=== PATIENT | male | born 1995 | race Caucasian/White ===

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

== ENCOUNTER → 2017-01-06 | Outpatient (CLI) | payer OTHER ==
--- NOTE | 2017-01-06 16:00 | MR ---
EXAMINATION TYPE: MR lumbar spine wo con DATE OF EXAM: 01/06/2017 3:52 PM COMPARISON: NONE HISTORY: Constant back pain 6-8 months TECHNIQUE: T1 and T2 axial and sagittal images of the lumbar spine are submitted. FINDINGS: There is no abnormal signal seen within the visualized spinal cord or paraspinal soft tissu es. Slight curvature of the spine. At L1-2 there is no disc herniation or degenerative disc disease. No foraminal encroachment. No Canal stenosis. At L2-3 there is no degenerative disc disease, canal stenosis, or focal herniation. No neural foramin al encroachment. At L3-4 there is no degenerative disc disease, canal stenosis, or focal herniation. No neural foramin al encroachment. At L4-5 there is mild disc desiccation and broad-based central disc bulging with mild effacement of t hecal sac. No Canal stenosis. No nerve root contact. Neural foramina remain patent. At L5-S1 there is no degenerative disc disease, canal stenosis, or focal herniation. No neural forami nal encroachment. IMPRESSION: 1. At L4-5 there is mild disc desiccation and broad-based central disc bulging with mild effacement o f thecal sac. No Canal stenosis. No nerve root contact. Neural foramina remain patent
== END | disposition home or self-care (01) ==
LOC: RADMRIMAIN 14:48
PROVIDERS: ATTEND Internal Medicine
DX: M51.26 Other intervertebral disc displacement, lumbar region (principal)
CPT/HCPCS: 72148

== ENCOUNTER 2017-12-05 23:05 | Emergency (ER) | payer OTHER ==
--- NOTE | 2017-12-06 00:08 | ED ---
General Adult HPI - General Chief complaint: Extremity Injury, Upper Stated complaint: HAND INJURY Time Seen by Provider: 12/05/17 23:52 Source: patient, family, RN notes reviewed Mode of arrival: ambulatory Limitations: no limitations - History of Present Illness Initial comments: Chief complaint history of present illness a 22-year-old male here with a complaint of right hand pain and swelling. The patient reports that he punched a refrigerator yesterday. Today he also went to a farm contractor buyer and had a large wart on the PIP joint of his middle finger frozen. Patient states that he was at [facility] yesterday had an x-ray. He was told was a contusion, not broken. The patient states she doesn't believe that it is not broken. Has taken ibuprofen for pain. Patient denies breaking the hand previously though he does have a deformed right middle finger. The patient is right-hand dominant. - Related Data Previous Rx's Medication Instructions Recorded Naproxen 500 mg PO BID PRN #8 tablet 12/06/17 Allergies Allergy/AdvReac Type Severity Reaction Status Date / Time amoxicillin Allergy Rash/Hives Verified 12/05/17 23:24 Review of Systems ROS Statement: Those systems with pertinent positive or pertinent negative responses have been documented in the HPI. Review of systems no other complaint other than right hand pain. Past medical problems none. Surgeries and reconstruction. Family history no cancers. The patient has ALLERGIES to amoxicillin. He does have asthma he does smoke strongly encouraged to stop. Denies alcohol use except for special occasions. ROS Other: All systems not noted in ROS Statement are negative. Past Medical History Past Medical History: No Reported History History of Any Multi-Drug Resistant Organisms: None Reported Additional Past Surgical History / Comment(s): anal reconstruction. Past Psychological History: No Psychological Hx Reported Smoking Status: Current every day smoker Past Alcohol Use History: Occasional Past Drug Use History: Marijuana General Exam - General Exam Comments Initial Comments: Physical exam; pertinent to the patient's visit. Patient's vital signs are stable temperature 98.0 pulse 88 respiratory rate 16 pulse ox 90% room air blood pressure 144/81. No other complaints other than pain to his right hand which is his dominant hand. He presents with swelling over the third fourth and fifth dorsal surfaces of the right hand. No pain to the wrist. The patient will have a re-x-ray. He is able to flex and extend but with discomfort. No evidence of any neurovascular deficits. As noted above he also recently had a large wart frozen on his PIP joint of his middle finger. Limitations: no limitations Course Vital Signs 12/05/17 23:21 Temperature 98 F Pulse Rate 88 Respiratory 16 Rate Blood Pressure 144/81 O2 Sat by Pulse 98 Oximetry Medical Decision Making - Medical Decision Making Medical decision making; is a 22-year-old male here with a complaint of right hand pain after punching a refrigerator yesterday. Mild swelling is noted on the dorsal surface. Range of motion is decreased secondary to discomfort. The patient has a chronically flexed right little finger at the PIP joint due to previous injury. The patient is right-hand dominant. X-ray of the right hand was done multiple views. I reviewed the x- rays. I don't see any acute bony irregularity. There is evidence of a chronic deformity to the PIP joint of the right fifth digit as noted above. Awaiting radiologist's final impression. Radiologist reviewed the x-rays and his impression is I see no fracture nor dislocation. There is some soft tissue swelling on dorsum of the hand. Metacarpals are intact. Impression soft tissue swelling. No fracture. As read by Dr. Rascon Patient was placed on Anaprox one tablet twice a day. Patient had an Lamont wrap applied to the hand told to keep it elevated. Advised to follow-up with his family physician. Disposition Clinical Impression: Contusion of right hand, initial encounter Disposition: HOME SELF-CARE Condition: Fair Instructions: Contusion in Adults (ED) Additional Instructions: Lamont to the hand, elevate. Use Anaprox for pain. Follow-up with family physician. If pain continues re-x-ray in 7-10 days to be advised. Prescriptions: Naproxen 500 mg PO BID PRN #8 tablet PRN Reason: Pain Referrals: Zaki Rico MD [Primary Care Provider] - 1-2 days Time of Disposition: 00:48
[2017-12-06] MEDS ORDERED: NAPROXEN 250 MG TAB PO STA (00:34)
--- NOTE | 2017-12-06 00:46 | XR ---
EXAMINATION TYPE: XR hand complete RT DATE OF EXAM: 12/06/2017 COMPARISON: NONE HISTORY: Metacarpal pain TECHNIQUE: 3 views FINDINGS: I see no fracture nor dislocation. There is some soft tissue swelling on the dorsum of the hand. Metacarpals are intact. IMPRESSION: Soft tissue swelling. No fracture.
[2017-12-06 00:57] VITALS: BP 126/56; PULSE 73; RESP 18; TEMP 98.4
== END 2017-12-06 00:57 | disposition home or self-care (01) ==
LOC: SUPCPDRO 23:05 → EC 23:05
DX: S60.221A Contusion of right hand, initial encounter (principal); F17.200 Nicotine dependence, unspecified, uncomplicated; Z88.0 Allergy status to penicillin; W22.8XXA Striking against or struck by other objects, initial encounter
CPT/HCPCS: 99283

== ENCOUNTER 2018-05-11 22:23 | Emergency (ER) | payer OTHER ==
[2018-05-11 22:28] VITALS: BP 156/96; PULSE 80; RESP 20; TEMP 98.2
[2018-05-11] MEDS ORDERED: DIPH,PERTUS(ACELL)TETVAC-LF 0.5 ML VIAL IM ONE (22:36)
[2018-05-11] MEDS ORDERED: LIDOCAINE/EPINEPHR/TETRACAINE 5 ML BOTTLE TOPICAL ONE (22:36)
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
[2018-05-11] MEDS ORDERED: TOPICAL SKIN ADHESIVE 1 EACH AMP TOPICAL ONE (22:49)
[2018-05-11] MEDS ORDERED: IBUPROFEN 600 MG TAB PO STA (22:52)
== END 2018-05-11 23:13 | disposition home or self-care (01) ==
LOC: EC 22:23
DX: S01.111A Laceration without foreign body of right eyelid and periocular area, initial encounter (principal); F17.200 Nicotine dependence, unspecified, uncomplicated; Z23 Encounter for immunization; Z79.899 Other long term (current) drug therapy; Z88.0 Allergy status to penicillin; Y04.0XXA Assault by unarmed brawl or fight, initial encounter; Y92.009 Unspecified place in unspecified non-institutional (private) residence as the place of occurrence of the external cause
CPT/HCPCS: 12011; 90471; 90715; 99283

== ENCOUNTER 2023-03-10 21:49 | Emergency (ER) | payer OTHER ==
--- NOTE | 2023-03-10 23:35 | XR ---
EXAM: XR Chest, 2 Views CLINICAL HISTORY: ITS.REASON XR Reason: injury TECHNIQUE: Frontal and lateral views of the chest. COMPARISON: No relevant prior studies available. FINDINGS: Lungs: Unremarkable. No consolidation. Pleural space: Unremarkable. No pneumothorax. Heart: Unremarkable. No cardiomegaly. Mediastinum: Unremarkable. Bones/joints: Unremarkable. IMPRESSION: Normal chest x-rays.
--- NOTE | 2023-03-10 23:35 | XR ---
EXAM: XR Left Clavicle Complete, 2 or More Views CLINICAL HISTORY: ITS.REASON XR Reason: injury TECHNIQUE: Frontal and lordotic views of the left clavicle. COMPARISON: No relevant prior studies available. FINDINGS: Bones/joints: Unremarkable. No acute fracture. No dislocation. Soft tissues: Unremarkable. IMPRESSION: Normal left clavicle x-rays.
--- NOTE | 2023-03-10 23:36 | XR ---
EXAM: XR Left Shoulder Complete, 2 or More Views CLINICAL HISTORY: ITS.REASON XR Reason: injury TECHNIQUE: Two or more views of the left shoulder. COMPARISON: No relevant prior studies available. FINDINGS: Bones/joints: Unremarkable. No acute fracture. No dislocation. Soft tissues: Unremarkable. IMPRESSION: Normal left shoulder x-rays.
--- NOTE | 2023-03-11 | ED ---
General Adult HPI - General Chief complaint: Extremity Injury, Upper Stated complaint: Left collarbone pain Time Seen by Provider: 03/10/23 22:54 Source: patient, RN notes reviewed Mode of arrival: ambulatory Limitations: no limitations - History of Present Illness Initial comments: 27-year-old male presents emergency department chief complaint of left-sided clavicle and shoulder pain. He states that he was carrying 6 plastic tables at work 2 days ago when the tables fell onto his left sided chest. He states the pain is worse with movement. He states that he went to work today but had a work with limitations. He did not hit his head or lose consciousness when he fell. PMH includes asthma. - Related Data Home Medications Medication Instructions Recorded Confirmed Loratadine [Claritin] 10 mg PO DAILY 05/11/18 05/11/18 Promethazine HCl [Promethazine HCl 6.25 mg PO DAILY 05/11/18 05/11/18 Oral Elixir] Allergies Allergy/AdvReac Type Severity Reaction Status Date / Time amoxicillin Allergy Rash/Hives Verified 03/10/23 22:11 Review of Systems ROS Statement: Those systems with pertinent positive or pertinent negative responses have been documented in the HPI. ROS Other: All systems not noted in ROS Statement are negative. Past Medical History Past Medical History: No Reported History History of Any Multi-Drug Resistant Organisms: None Reported Additional Past Surgical History / Comment(s): anal reconstruction. Past Psychological History: ADD/ADHD Smoking Status: Vaper Past Alcohol Use History: Occasional Past Drug Use History: Marijuana General Exam Limitations: no limitations General appearance: alert, in no apparent distress Head exam: Present: atraumatic, normocephalic, normal inspection Eye exam: Present: normal appearance ENT exam: Present: normal exam, mucous membranes moist Neck exam: Present: normal inspection, full ROM. Absent: tenderness, meningismus, lymphadenopathy Respiratory exam: Present: normal lung sounds bilaterally. Absent: respiratory distress, wheezes, rales, rhonchi, stridor Cardiovascular Exam: Present: regular rate, normal rhythm, normal heart sounds. Absent: systolic murmur, diastolic murmur, rubs, gallop, clicks Extremities exam: Present: normal inspection, full ROM, tenderness (left clavicle, trapezius muscle), normal capillary refill. Absent: pedal edema, joint swelling, calf tenderness Back exam: Present: normal inspection Neurological exam: Present: alert, oriented X3 Psychiatric exam: Present: normal affect, normal mood Skin exam: Present: warm, dry, intact, normal color. Absent: rash Course Vital Signs 03/10/23 22:03 Temperature 98.4 F Pulse Rate 100 Respiratory 18 Rate Blood Pressure 129/77 O2 Sat by Pulse 98 Oximetry Medical Decision Making - Medical Decision Making Was pt. sent in by a medical professional or institution (, [facility], [employer], urgent care, hospital, or halfway...) When possible be specific @ -No Did you speak to anyone other than the patient for history (EMS, parent, family, police, friend...)? What history was obtained from this source @ -No Did you review nursing and triage notes (agree or disagree)? Why? @ -I reviewed and agree with nursing and triage notes Were old charts reviewed (outside hosp., previous admission, EMS record, old EKG, old radiological studies, urgent care reports/EKG's, halfway records)? Report findings @ -No old charts were reviewed Differential Diagnosis (chest pain, altered mental status, abdominal pain women, abdominal pain men, vaginal bleeding, weakness, fever, dyspnea, syncope, headache, dizziness, GI bleed, back pain, seizure, CVA, palpatations, mental health, musculoskeletal)? @ -Differential Musculoskeletal Muscular strain, contusion, ligament sprain, fracture, arthritis, septic arthritis, bursitis, cellulitis, muscle spasm, nerve compression, DVT, arterial occlusion, herpes zoster, electrolyte abnormality, tumor.... This is not meant to be in all inclusive list EKG interpreted by me (3pts min.). @ -None X-rays interpreted by me (1pt min.). @ -XR left clavicle showed no evidence for acute fracture X-ray left shoulder showed no evidence for acute fracture X-ray chest showed no evidence for rib fracture CT interpreted by me (1pt min.). @ -None done U/S interpreted by me (1pt. min.). @ -None done What testing was considered but not performed or refused? (CT, X-rays, U/S, labs)? Why? @ -None What meds were considered but not given or refused? Why? @ -None Did you discuss the management of the patient with other professionals (professionals i.e. , PA, [employer], lab, RT, psych nurse, social sciences research scientist, trace evidence technician, teacher, communications officer, supportive employment case manager)? Give summary @ -No Was smoking cessation discussed for >3mins.? @ -No Was critical care preformed (if so, how long)? @ -No Were there social determinants of health that impacted care today? How? ( Homelessness, low income, unemployed, alcoholism, drug addiction, transportation, low edu. Level, literacy, decrease access to med. care, longterm, rehab)? @ -No Was there de-escalation of care discussed even if they declined (Discuss DNR or withdrawal of care, Hospice)? DNR status @ -No What co-morbidities impacted this encounter? (DM, HTN, Smoking, COPD, CAD, Cancer, CVA, ARF, Chemo, Hep., AIDS, mental health diagnosis, sleep apnea, morbid obesity)? @ -None Was patient admitted / discharged? Hospital course, mention meds given and route, prescriptions, significant lab abnormalities, going to OR and other pertinent info. @ -Discharged. Patient presented to emergency department chief complaint of left clavicle and shoulder pain 2 days following an injury that occurred at work. XR obtained of shoulder, clavicle, and chest which showed no evidence for acute fracture. Patient advised on findings and to take tylenol and motrin as needed for pain. Patient stable at time of discharge. Case discussed my attending, Dr. Hastings Undiagnosed new problem with uncertain prognosis? @ -No Drug Therapy requiring intensive monitoring for toxicity (Heparin, Nitro, Insulin, Cardizem)? @ -No Were any procedures done? @ -No Diagnosis/symptom? @ -Rib contusion Acute, or Chronic, or Acute on Chronic? @ -Acute Uncomplicated (without systemic symptoms) or Complicated (systemic symptoms)? @ -Uncomplicated Side effects of treatment? @ -No Exacerbation, Progression, or Severe Exacerbation? @ -No Poses a threat to life or bodily function? How? (Chest pain, [place], ID, pneumonia, PE, COPD, DKA, ARF, appy, cholecystitis, CVA, Diverticulitis, Homicidal, Suicidal, threat to staff... and all critical care pts) @ -No Disposition Clinical Impression: Strain of shoulder Disposition: HOME SELF-CARE Condition: Stable Instructions (If sedation given, give patient instructions): Rib Contusion (ED) Additional Instructions: Alternate Tylenol and Motrin as needed for pain. Please return to the emergency department for new or worsening symptoms. Is patient prescribed a controlled substance at d/c from ED?: No Referrals: Zaki Rico MD [Primary Care Provider] - 1-2 days Time of Disposition: 00:22
[2023-03-11 00:39] VITALS: BP 127/92; PULSE 72; RESP 16; TEMP 97.7
== END 2023-03-11 00:39 | disposition home or self-care (01) ==
LOC: EC 21:49
DX: S46.912A Strain of unspecified muscle, fascia and tendon at shoulder and upper arm level, left arm, initial encounter (principal); F12.90 Cannabis use, unspecified, uncomplicated; F17.290 Nicotine dependence, other tobacco product, uncomplicated; Z88.0 Allergy status to penicillin; W18.30XA Fall on same level, unspecified, initial encounter
CPT/HCPCS: 71046; 99283